=== PATIENT | male | born 1960 | race Caucasian/White ===

== ENCOUNTER 2019-09-01 23:39 | Observation (INO) ==
--- OUTSIDE RECORDS SUMMARY | 2019-09-01 23:41 | External Medical Summary | Continuity of Care Document ---
:1960 Author Name Lynda Burris, Provider Address Unavailable Unavailable , Care Team Providers Name Role Phone Татьяна Sahu Unavailable [email or web address] Anabel Gupta Unavailable [email or web address] Unavailable Unavailable Unavailable Unavailable Problems Blurry vision (368.8) (H53.8) Diabetes mellitus (250.00) (E11.9) Hypertension (401.9) (I10) Right inguinal hernia (550.90) (K40.90) Hypothyroidism (244.9) (E03.9) Atrial fibrillation (427.31) (I48.91) Microalbuminuria (791.0) (R80.9) Dyslipidemia (272.4) (E78.5) Diabetes mellitus type 2, uncontrolled (250.02) (E11.65) Allergies and Adverse Reactions No Known Drug Allergies (Allergy) Medications HYDROcodone-Acetaminophen 10-325 MG Oral Tablet; TAKE 1 TABLET DAILY FOR 10 DAYS. Refills: 0 Tricor 145 MG Oral Tablet; TAKE 1 TABLET DAILY AT BEDTIME Refills: 0 Synthroid 137 MCG Oral Tablet; TAKE 1 TABLET DAILY DIRECT ED. Refills: 0 metFORMIN HCl - 500 MG Oral Tablet; TAKE 1 TABLET TWICE [place] Y. Refills: 0 Flonase 50 MCG/ACT SUSP; USE 2 SPRAYS IN EACH NOSTRIL ONCE D AILY Refills: 0 OneTouch Ultra Blue In Vitro Strip; Test 3 times daily JON Lua Start: 04-Mar-2013 Quantity: 100 100 EA Bottle Refills: 5 OneTouch Delica Lancets MISC; Test 3 times daily ARCELIA Masters Start: 04-Mar-2013 Quantity: 100 Refills: 11 Procedures Procedures not documented Immunizations Influenza On: 12-Feb-2013 Social History - Smoking Status Never smoked tobacco Plan of Treatment Planned Observations Planned Goals not documented Results No Known Results Results not documented Encounters Appointment; Татьяна Presley CRNP 10-Jan-2018 9:15 Encounter Diagnosis: Problem not documented
--- OUTSIDE RECORDS SUMMARY | 2019-09-01 23:41 | External Medical Summary | Continuity of Care Document ---
:1960 Author Name Lynda Burris, Provider Address Unavailable Unavailable , Care Team Providers Name Role Phone Татьяна Sahu Unavailable [email or web address] Anabel Gupta Unavailable [email or web address] Unavailable Unavailable Unavailable Unavailable Unavailable Problems Hypertension (401.9) (I10) Atrial fibrillation (427.31) (I48.91) Blurry vision (368.8) (H53.8) Dyslipidemia (272.4) (E78.5) Diabetes mellitus (250.00) (E11.9) Diabetes mellitus type 2, uncontrolled (250.02) (E11.65) Hypothyroidism (244.9) (E03.9) Right inguinal hernia (550.90) (K40.90) Microalbuminuria (791.0) (R80.9) Allergies and Adverse Reactions No Known Drug Allergies (Allergy) Medications Tricor 145 MG Oral Tablet; TAKE 1 TABLET DAILY AT BEDTIME Refills: 0 OneTouch Ultra Blue In Vitro Strip; Test 3 times daily JON Lua Start: 04-Mar-2013 Quantity: 100 100 EA Bottle Refills: 5 OneTouch Delica Lancets MISC; Test 3 times daily ARCELIA Masters Start: 04-Mar-2013 Quantity: 100 Refills: 11 HYDROcodone-Acetaminophen 10-325 MG Oral Tablet; TAKE 1 TABLET DAILY FOR 10 DAYS. Refills: 0 Synthroid 137 MCG Oral Tablet; TAKE 1 TABLET DAILY DIRECT ED. Refills: 0 metFORMIN HCl - 500 MG Oral Tablet; TAKE 1 TABLET TWICE [place] Y. Refills: 0 Flonase 50 MCG/ACT SUSP; USE 2 SPRAYS IN EACH NOSTRIL ONCE D AILY Refills: 0 Procedures Procedures not documented Immunizations Influenza On: 12-Feb-2013 Social History - Smoking Status Never smoked tobacco Plan of Treatment Planned Observations Planned Goals not documented Results No Known Results Results not documented Encounters Appointment; Татьяна Presley CRNP 10-Jan-2018 9:15 Encounter Diagnosis: Problem not documented
[2019-09-02] MEDS ORDERED: SODIUM CHLORIDE 0.9% 1000ML 1,000 ML IV ONE ×2 (00:02→01:24)
--- NOTE | 2019-09-02 00:13 | Emergency Department Note ---
History of Present Illness General Chief complaint: Syncope Stated complaint: DIZZY,PASSING OUT History of Present Illness Maximum Pain Intensity: 5 This 59-year-old presents to the ER complaining of abdominal pain, loss of taste, feeling dehydrated, lightheaded, intermittent headache, cough, chills, body aches and syncope for the past 4 days Location: Generalized Quality: Achy Severity: Moderate Duration: 4 days Timing: Symptoms started Saturday Context: Patient was concerned given Modifying factors: better with rest; worse with activity Patient states tonight when he got up he got lightheaded and briefly passed out. This occurred 5 times. Patient also complains of polydipsia, polyuria and blurry vision. He is a diabetic. He does not check his blood sugars. Patient has not traveled. He has not left his home. [place] sick contacts[place] Patient complains of feeling chilled and achy. Patient denies chest pain, dyspnea, productive cough, sore throat, vomiting, diarrhea, leg pain or swelling. He does not smoke or drink. No prior abdominal surgeries. Home Medications Home Medications Medication Instructions Recorded Confirmed Type hydrocodone-acetaminophen 1 tab PO DAILY PRN 09/02/19 09/02/19 History ibuprofen 800 mg PO Q8 PRN 09/02/19 09/02/19 History levothyroxine 137 mcg PO DAILY 09/02/19 09/02/19 History metformin 1,000 mg PO BID 09/02/19 09/02/19 History Allergies Allergy/AdvReac Type Severity Reaction Status Date / Time No Known Allergies Allergy Unknown Verified 09/02/19 01:01 Past Med/Surg History Medical History Diabetes Surgical History (Updated 09/02/19 @ 00:12 by Yadira Cristobal PA-C) H/O thyroidectomy Social History Preferred Language: Greenlandic Feels Safe at Home: Yes Smoking Status: Never smoker Review of Systems A total of 10 systems reviewed and were otherwise negative Physical Exam Vital Signs Vital Signs - 24 hr 09/01/19 23:44 09/02/19 00:30 09/02/19 00:34 Temperature 37.0 C Temperature Source Oral Pulse Rate 96 H 92 H 89 Pulse Rate [Apical] Pulse Rate from SpO2 Sensor 92 H Pulse Rhythm [Apical] Respiratory Rate 20 25 H Respiratory Effort / Characteristics Non-Labored Respiratory Depth Normal Blood Pressure 155/90 H 142/84 H Blood Pressure [Left Arm] Blood Pressure Mean 111 92 Blood Pressure Mean [Left Arm] Pulse Oximetry 93 91 91 Oxygen Delivery Method Room Air Room Air Room Air Sepsis Recent Fever Within 48 Hours No Sepsis New/Unexplained Change in Mental Status No Sepsis Action Taken by Nursing No Action Required 09/02/19 01:00 09/02/19 01:30 09/02/19 02:05 Temperature Temperature Source Pulse Rate 90 87 84 Pulse Rate [Apical] Pulse Rate from SpO2 Sensor 91 H 87 84 Pulse Rhythm [Apical] Respiratory Rate 23 24 20 Respiratory Effort / Characteristics Respiratory Depth Blood Pressure 148/82 H 150/96 H 163/92 H Blood Pressure [Left Arm] Blood Pressure Mean 118 107 107 Blood Pressure Mean [Left Arm] Pulse Oximetry 95 95 96 Oxygen Delivery Method Room Air Room Air Room Air Sepsis Recent Fever Within 48 Hours Sepsis New/Unexplained Change in Mental Status Sepsis Action Taken by Nursing 09/02/19 02:44 Temperature Temperature Source Pulse Rate Pulse Rate [Apical] 81 Pulse Rate from SpO2 Sensor Pulse Rhythm [Apical] Regular Respiratory Rate 16 Respiratory Effort / Characteristics Non-Labored Spontaneous Respiratory Depth Normal Blood Pressure Blood Pressure [Left Arm] 150/94 H Blood Pressure Mean Blood Pressure Mean [Left Arm] 112 Pulse Oximetry 96 Oxygen Delivery Method Room Air Sepsis Recent Fever Within 48 Hours Sepsis New/Unexplained Change in Mental Status Sepsis Action Taken by Nursing VITALS: Vitals are noted on the nurse's note and reviewed by myself. Vital signs stable. GENERAL: Pleasant male mildly dehydrated appearing, in no acute distress, nondiaphoretic, well-developed well-nourished. SKIN: The skin was without rashes, erythema, edema, or bruising. There is no tenting of the skin. Capillary reflex less than 2 seconds. HEAD: Normocephalic atraumatic. EARS: External auditory canals clear, tympanic membranes pearly phan without erythema or effusion bilaterally. EYES: Pupils equal round and reactive to light and accommodation. Conjunctivae without injection, sclerae without icterus. Extraocular movements intact. NOSE: Patent, turbinates without inflammation or discharge. No sinus tenderness. MOUTH: Mucous membranes mildly dry. Pharynx without erythema or exudate. Uvula midline. Airway patent. Tongue does not deviate. NECK: Supple without nuchal rigidity. No lymphadenopathy. No thyromegaly. Cervical spine is nontender. No JVD. HEART: Regular rate and rhythm LUNGS: Clear to auscultation bilaterally without wheezes, rales or rhonchi. No retractions or accessory muscle use. ABDOMEN: Positive bowel sounds x 4. Normal tympanic percussion. Soft, tender to palpation right lower quadrant, without masses or organomegaly. Alvarez sign negative. No guarding or rebound tenderness. No CVA tenderness MUSCULOSKELETAL: No muscle atrophy, erythema, or edema noted. NEURO: Patient was alert and oriented to person place and time. Normal sensation to light and sharp touch. No focal neurological deficits. Course Administered Medications Ceftriaxone Sodium (Rocephin) 2,000 mg in 70 mls @ 140 mls/hr IV NOW STA Stop: 09/02/19 02:58 Last Admin: 09/02/19 02:45 Dose: 140 mls/hr Documented by: [id number] Sodium Chloride (Nss 1000ml) 1,000 mls @ 125 mls/hr IV .Q8H NATALIE Stop: 10/02/19 02:44 Last Admin: 09/02/19 02:46 Dose: 125 mls/hr Documented by: [id number] Ioversol (Optiray 320 125ml) 125 ml IV ONCE PRN PRN Reason: Interaction Checking Stop: 09/06/19 02:21 Last Admin: 09/02/19 02:22 Dose: 117 ml Documented by: [id number] Discontinued Medications Azithromycin (Zithromax) 500 mg PO NOW ONE Stop: 09/02/19 02:30 Last Admin: 09/02/19 02:46 Dose: 500 mg Documented by: [id number] Sodium Chloride (Nss 1000ml) 1,000 mls @ 999 mls/hr IV .Q1H1M ONE Stop: 09/02/19 01:02 Last Infusion: 09/02/19 01:27 Dose: 0 mls/hr Documented by: [id number] Admin: 09/02/19 00:26 Dose: 999 mls/hr Documented by: [id number] Sodium Chloride (Nss 1000ml) 1,000 mls @ 999 mls/hr IV .Q1H1M ONE Stop: 09/02/19 02:24 Last Infusion: 09/02/19 02:46 Dose: 0 mls/hr Documented by: [id number] Admin: 09/02/19 02:02 Dose: 999 mls/hr Documented by: [id number] Medical Decision Making Medical Records Attestation: I reviewed the patient's medical records. Home Medications Current Medication List: was personally reviewed by me Laboratory Data Attestation: I reviewed the patient's lab results. Result diagrams: 09/02/19 00:20 09/02/19 00:20 Lab Results 09/02/19 09/02/19 09/02/19 Range/Units 00:06 00:20 00:20 WBC 8.80 (4.8-10.8) K/uL RBC 4.08 L (4.7-6.1) M/uL Hgb 13.0 L (14.0-18.0) g/dL Hct 36.6 L (42-52) % MCV 89.7 (80-100) fL MCH 31.9 (25-34) pg MCHC 35.5 (32-36) g/dL RDW Std Deviation 40.6 (36.4-46.3) fL RDW Coeff of Ita 12.4 (11.5-14.5) % Plt Count 226 (130-400) K/uL MPV 10.0 (7.4-10.4) fL Immature Gran % (Auto) 0.2 % Neut % (Auto) 75.0 % Lymph % (Auto) 15.5 % Gentry % (Auto) 8.0 % Eos % (Auto) 0.8 % Baso % (Auto) 0.5 % Immature Gran # (Auto) 0.02 (0.00-0.02) K/uL Neut # (Auto) 6.61 H (1.4-6.5) K/uL Lymph # (Auto) 1.36 (1.2-3.4) K/uL Gentry # (Auto) 0.70 H (0.11-0.59) K/uL Eos # (Auto) 0.07 (0-0.5) K/uL Baso # (Auto) 0.04 (0-0.2) K/uL PT 10.9 (9.0-12.0) Seconds INR 1.0 (0.9-1.1) APTT 27.2 (21.0-31.0) Seconds PTT Ratio 1.0 Sodium (136-145) mmol/L Potassium (3.5-5.1) mmol/L Chloride (98-107) mmol/L Carbon Dioxide (21-32) mmol/L Anion Gap (3-11) BUN (7-18) mg/dl Creatinine (0.6-1.4) mg/dl Est Cr Clr Drug Dosing ml/min Est GFR ( Amer) Est GFR (Non-Af Amer) BUN/Creatinine Ratio (10-20) Glucose (70-99) mg/dl POC Glucose 388 H* (70-99) mg/dl POC Lactic Acid Mick (0.90-1.70) mmol/L Lactate (0.4-2.0) mmol/L Calcium (8.5-10.1) mg/dl Magnesium (1.8-2.4) mg/dl Total Bilirubin (0.2-1) mg/dl AST (15-37) U/L ALT (12-78) U/L Alkaline Phosphatase (45-117) U/L Troponin I (0-0.045) ng/ml Total Protein (6.4-8.2) gm/dl Albumin (3.4-5.0) gm/dl Globulin (2.5-4.0) gm/dl Albumin/Globulin Ratio (0.9-2) Beta-Hydroxybutyric Acd (0.2-2.81) mg/dl TSH (0.300-4.500) uIu/ml Free T4 (0.8-1.6) ng/dl Urine Color Urine Appearance (Clear) Urine pH (4.5-7.5) Ur Specific [place] (1.000-1.030) Urine Protein (Negative) Urine Glucose (UA) (Negative) Urine Ketones (Negative) Urine Blood (Negative) Urine Nitrite (Negative) Urine Bilirubin (Negative) Urine Urobilinogen (Negative) Ur Leukocyte Esterase (Negative) Urine WBC (Auto) (0-5) /hpf Urine RBC (Auto) (0-4) /hpf U Hyaline Cast (Auto) (0-5) /lpf U Epithel Cells (Auto) (0-5) /lpf Urine Bacteria (Auto) (Negative) 09/02/19 09/02/19 09/02/19 Range/Units 00:20 00:20 00:28 WBC (4.8-10.8) K/uL RBC (4.7-6.1) M/uL Hgb (14.0-18.0) g/dL Hct (42-52) % MCV (80-100) fL MCH (25-34) pg MCHC (32-36) g/dL RDW Std Deviation (36.4-46.3) fL RDW Coeff of Ita (11.5-14.5) % Plt Count (130-400) K/uL MPV (7.4-10.4) fL Immature Gran % (Auto) % Neut % (Auto) % Lymph % (Auto) % [place] % (Auto) % Eos % (Auto) % Baso % (Auto) % Immature Gran # (Auto) (0.00-0.02) K/uL Neut # (Auto) (1.4-6.5) K/uL Lymph # (Auto) (1.2-3.4) K/uL Gentry # (Auto) (0.11-0.59) K/uL Eos # (Auto) (0-0.5) K/uL Baso # (Auto) (0-0.2) K/uL PT (9.0-12.0) Seconds INR (0.9-1.1) APTT (21.0-31.0) Seconds PTT Ratio Sodium 133 L (136-145) mmol/L Potassium 4.1 (3.5-5.1) mmol/L Chloride 99 (98-107) mmol/L Carbon Dioxide 25 (21-32) mmol/L Anion Gap 9.0 (3-11) BUN 21 H (7-18) mg/dl Creatinine 1.74 H (0.6-1.4) mg/dl Est Cr Clr Drug Dosing 54.2 ml/min Est GFR ( Amer) 49.0 Est GFR (Non-Af Amer) 42.3 BUN/Creatinine Ratio 11.8 (10-20) Glucose 417 H* (70-99) mg/dl POC Glucose (70-99) mg/dl POC Lactic Acid Mick 1.89 H (0.90-1.70) mmol/L Lactate 2.0 (0.4-2.0) mmol/L Calcium 9.0 (8.5-10.1) mg/dl Magnesium 2.1 (1.8-2.4) mg/dl Total Bilirubin 0.5 (0.2-1) mg/dl AST 25 (15-37) U/L ALT 42 (12-78) U/L Alkaline Phosphatase 111 (45-117) U/L Troponin I < 0.015 (0-0.045) ng/ml Total Protein 8.3 H (6.4-8.2) gm/dl Albumin 3.5 (3.4-5.0) gm/dl Globulin 4.8 H (2.5-4.0) gm/dl Albumin/Globulin Ratio 0.7 L (0.9-2) Beta-Hydroxybutyric Acd (0.2-2.81) mg/dl TSH 11.200 H (0.300-4.500) uIu/ml Free T4 1.19 (0.8-1.6) ng/dl Urine Color Urine Appearance (Clear) Urine pH (4.5-7.5) Ur Specific [place] (1.000-1.030) Urine Protein (Negative) Urine Glucose (UA) (Negative) Urine Ketones (Negative) Urine Blood (Negative) Urine Nitrite (Negative) Urine Bilirubin (Negative) Urine Urobilinogen (Negative) Ur Leukocyte Esterase (Negative) Urine WBC (Auto) (0-5) /hpf Urine RBC (Auto) (0-4) /hpf U Hyaline Cast (Auto) (0-5) /lpf U Epithel Cells (Auto) (0-5) /lpf Urine Bacteria (Auto) (Negative) 09/02/19 09/02/19 Range/Units 01:37 02:38 WBC (4.8-10.8) K/uL RBC (4.7-6.1) M/uL Hgb (14.0-18.0) g/dL Hct (42-52) % MCV (80-100) fL MCH (25-34) pg MCHC (32-36) g/dL RDW Std Deviation (36.4-46.3) fL RDW Coeff of Ita (11.5-14.5) % Plt Count (130-400) K/uL MPV (7.4-10.4) fL Immature Gran % (Auto) % Neut % (Auto) % Lymph % (Auto) % Gentry % (Auto) % Eos % (Auto) % Baso % (Auto) % Immature Gran # (Auto) (0.00-0.02) K/uL Neut # (Auto) (1.4-6.5) K/uL Lymph # (Auto) (1.2-3.4) K/uL Gentry # (Auto) (0.11-0.59) K/uL Eos # (Auto) (0-0.5) K/uL Baso # (Auto) (0-0.2) K/uL PT (9.0-12.0) Seconds INR (0.9-1.1) APTT (21.0-31.0) Seconds PTT Ratio Sodium (136-145) mmol/L Potassium (3.5-5.1) mmol/L Chloride (98-107) mmol/L Carbon Dioxide (21-32) mmol/L Anion Gap (3-11) BUN (7-18) mg/dl Creatinine (0.6-1.4) mg/dl Est Cr Clr Drug Dosing ml/min Est GFR ( Amer) Est GFR (Non-Af Amer) BUN/Creatinine Ratio (10-20) Glucose (70-99) mg/dl POC Glucose 326 H* (70-99) mg/dl POC Lactic Acid Mick (0.90-1.70) mmol/L Lactate (0.4-2.0) mmol/L Calcium (8.5-10.1) mg/dl Magnesium (1.8-2.4) mg/dl Total Bilirubin (0.2-1) mg/dl AST (15-37) U/L ALT (12-78) U/L Alkaline Phosphatase (45-117) U/L Troponin I (0-0.045) ng/ml Total Protein (6.4-8.2) gm/dl Albumin (3.4-5.0) gm/dl Globulin (2.5-4.0) gm/dl Albumin/Globulin Ratio (0.9-2) Beta-Hydroxybutyric Acd (0.2-2.81) mg/dl TSH (0.300-4.500) uIu/ml Free T4 (0.8-1.6) ng/dl Urine Color Yellow Urine Appearance Clear (Clear) Urine pH 5.0 (4.5-7.5) Ur Specific [place] 1.035 H (1.000-1.030) Urine Protein 1+ H (Negative) Urine Glucose (UA) 3+ H (Negative) Urine Ketones Trace H (Negative) Urine Blood Trace H (Negative) Urine Nitrite Negative (Negative) Urine Bilirubin Negative (Negative) Urine Urobilinogen Negative (Negative) Ur Leukocyte Esterase Negative (Negative) Urine WBC (Auto) 1-5 (0-5) /hpf Urine RBC (Auto) 0-4 (0-4) /hpf U Hyaline Cast (Auto) 0 (0-5) /lpf U Epithel Cells (Auto) 0-5 (0-5) /lpf Urine Bacteria (Auto) Negative (Negative) Imaging Data Attestation: I personally reviewed and interpreted this imaging study as follows: Blood Pressure Blood Pressure Findings: Elevated blood pressure Blood Pressure Disposition: Referred to patients primary care provider MDM Narrative Prior records/ancillary studies reviewed and summarized above. Nursing notes reviewed. The patient's history was concerning for syncope, abdominal pain, cold symptoms. Differential diagnosis: Etiologies such as DKA, coronavirus, intra-abdominal, metabolic, infection, hypo/hyperglycemia, electrolyte abnormalities, cardiac sources, intracerebral event, toxicologic, neurologic, as well as others were entertained. Physical examination: As above. ER treatment provided: IV Lock An order was placed for continuous cardiac monitoring. The monitor shows a rate of 60-100 with a normal sinus rhythm. IV fluids x2 L, maintenance at 125 an hour, Rocephin, Zithromax, insulin On reassessment the patient felt better. Diagnostics interpretation by me: ECG: Ordered for syncope EKG: Normal sinus, normal intervals, no acute ST-T wave changes, rate of 93. Impression normal sinus rhythm interpreted by myself I think arrhythmia is unlikely. EKG shows normal sinus rhythm with no interval abnormalities such as QT prolongation or WPW. There are no findings to suggest Brugada syndrome. Cardiac monitoring in the emergency department reveals no tachycardic or bradycardic dysrhythmia. Hypertrophic cardiomyopathy was considered but there are no clear historical elements pointing toward this. EKG is not suggestive. The QRS voltage is not extremely large and there are no suggestive Q waves. The labs revealed no leukocytosis, creatinine 1.7. No recent creatinine in chart review or in the [employer] system Hyperglycemia without DKA Blood cultures pending. Negative lactic acid COVID test pending Imaging studies: Chest x-ray concerning for possible right lower lobe pneumonia per my interpretation CTA CHEST: Patchy reticulonodular consolidation in the anterior and lateral right lower lobe is concerning for pneumonia. These imaging features are atypical or uncommonly reported for (COVID-19) pneumonia. Alternative diagnoses should be considered. Evaluation for pulmonary emboli in the distal branches is somewhat limited due to suboptimal opacification. No definite PE. No aortic aneurysm or dissection. Radiologist: Any Pavon MD CT HEAD: No acute intracranial hemorrhage, mass effect, midline shift, hydrocephalus or acute infarct. Bony structures are intact. Left mastoid effusion. Radiologist: Any Pavon MD CT ABDOMEN & PELVIS With Contrast: Hepatic steatosis. Gallbladder and pancreas are unremarkable. No hydronephrosis or nephrolithiasis. No bowel wall thickening or obstruction. Normal appendix. No free air or free fluid. Radiologist: Ayn Pavon MD Consultation: A consultation was placed with Dr. Hoffman. The case was discussed and diagnostics were reviewed. The patient was evaluated in the ER for further tr eatment. Exam and history seem consistent with pneumonia, syncope, dehydration, hyperglycemia. Patient was started on antibiotics. Medicine was consulted. Patient is agreeable. COVID testing was sent. Isolation precautions were implemented. Patient was given IV fluids and insulin. Blood sugar was rechecked. Medicine was made aware. Patient is agreeable to treatment plan of admission. By the evaluation outlined above emergent etiologies such as cardiac sources, intracerebral event, toxologic, neurologic, as well as others were deemed relatively unlikely. The pt informed about the findings as listed above. All questions were answered and pleased with the treatment. The chart was completed utilizing [employer] Speech voice recognition software. Grammatical errors, random word insertions, pronoun errors, and incomplete sentences are an occassional consequence of this system due to software limitations, ambient noise, and hardware issues. Any formal questions or c oncerns about the content, text, or information contained within the body of this dictation should be directly addressed to the physician floor covering printer assistant for clarification. Impression & Plan Pneumonia, Syncope, Acute dehydration, Acute hyperglycemia Discharge Plan Visit Data Chief Complaint: Syncope Stated Complaint: DIZZY,PASSING OUT ED Provider: Eric Grey ED Midlevel Provider: Yadira Cristobal Discharge Problem: Pneumonia, Syncope, Acute dehydration, Acute hyperglycemia Patient Disposition: Being Evaluated by Hospitalist Condition: Good Forms Stand Alone Forms: My [facility] Prescriptions Prescriptions: No Action levothyroxine 137 mcg tablet 137 mcg PO DAILY RF: 0 metformin 1,000 mg tablet 1,000 mg PO BID RF: 0 ibuprofen 800 mg tablet 800 mg PO Q8 PRN (Reason: Pain) RF: 0 hydrocodone-acetaminophen 5-325 mg tablet 1 tab PO DAILY PRN (Reason: Pain) RF: 0 Referrals Referrals: PCP,NO [Primary Care Provider] - Discharge Problem: Pneumonia Qualifiers: Pneumonia type: due to unspecified organism Laterality: bilateral Lung location: lower lobe of lung Qualified Code(s): J18.9 - Pneumonia, unspecified organism
[2019-09-02 00:45] LABS: Basophils # (auto) 0.04 K/uL (0-0.2); Basophils % (auto) 0.5 %; Eosinophils # (auto) 0.07 K/uL (0-0.5); Eosinophils % (auto) 0.8 %; Hematocrit (blood only) 36.6 % (42-52); Immature Granulocytes # (auto) 0.02 K/uL (0.00-0.02); Immature Granulocytes % (auto) 0.2 %; Lymphocytes # (auto) 1.36 K/uL (1.2-3.4); Lymphocytes % (auto) 15.5 %; Mean Corpuscular Hemoglobin 31.9 pg (25-34); Mean Corpuscular Hgb Conc 35.5 g/dL (32-36); Mean Corpuscular Volume 89.7 fL (80-100); Neutrophils # (auto) 6.61 K/uL (1.4-6.5); Platelet Count 226 K/uL (130-400); RDW Coefficient of Variation 12.4 % (11.5-14.5); RDW Standard Deviation 40.6 fL (36.4-46.3); Red Blood Count 4.08 M/uL (4.7-6.1)
[2019-09-02 01:03] LABS: Partial Thromboplastin Time 27.2 Seconds (21.0-31.0); Prothrombin Time 10.9 Seconds (9.0-12.0)
[2019-09-02 01:18] LABS: Alanine Aminotransferase 42 U/L (12-78); Albumin Globulin Ratio 0.7 (0.9-2); Albumin Level 3.5 gm/dl (3.4-5.0); Alkaline Phosphatase 111 U/L (45-117); Aspartate Aminotransferase 25 U/L (15-37); BUN Creatinine Ratio 11.8 (10-20); Bilirubin,Total 0.5 mg/dl (0.2-1); Blood Urea Nitrogen 21 mg/dl (7-18); Carbon Dioxide 25 mmol/L (21-32); Chloride 99 mmol/L (98-107); Creatinine Clr Calc Pharmacy 54.2 ml/min; Est GFR (Non-African American) 42.3; Globulin 4.8 gm/dl (2.5-4.0); Glucose 417 mg/dl (70-99); Magnesium 2.1 mg/dl (1.8-2.4); Potassium 4.1 mmol/L (3.5-5.1); Sodium 133 mmol/L (136-145); Total Protein 8.3 gm/dl (6.4-8.2); Troponin I < 0.015 ng/ml (0-0.045)
[2019-09-02 01:32] LABS: T4 Free Thyroxine 1.19 ng/dl (0.8-1.6)
[2019-09-02 01:48] LABS: Appearance Urine Clear (Clear); Bacteria Urine Automated Negative (Negative); Bilirubin Urine Negative (Negative); Blood Urine Trace (Negative); Cast Urine Automated 0 /lpf (0-5); Color Urine Yellow; Epithelial Cell Urine Auto 0-5 /lpf (0-5); Glucose Urine UA 3+ (Negative); Ketones Urine Trace (Negative); Leukocyte Esterase Urine Negative (Negative); Nitrite Urine Negative (Negative); Protein Urine 1+ (Negative); RBC Urine Automated 0-4 /hpf (0-4); Specific Gravity Urine 1.035 (1.000-1.030); Urobilinogen Urine Negative (Negative)
[2019-09-02] MEDS ORDERED: OPTIRAY 320 125ml IV PRN (02:22)
[2019-09-02] MEDS ORDERED: cefTRIAXone SODIUM 2,000 MG/70 ML BAG IV STA (02:29)
[2019-09-02] MEDS ORDERED: AZITHROMYCIN 250 MG TAB PO ONE (02:29)
[2019-09-02] MEDS ORDERED: NovoLIN-R INSULIN PER UNIT CHARGE IV STA (02:40)
[2019-09-02] MEDS ORDERED: SODIUM CHLORIDE 0.9% 1000ML 1,000 ML IV SCH ×2 (02:45→05:30)
--- NOTE | 2019-09-02 03:39 | History & Physical Report ---
Date of Service September 02, 2019 Assessment & Plan (1) Syncope: Patient reports multiple syncopal episodes occurring with positional changes most likely secondary to orthostatic syncope in setting of acute dehydration. He denies CP, palpitations, incontinence or seizure activity. -IVF - patient received 2L NSS in ER, will continue NSS 125mL/hr x 1 liter -Check orthostatic VS Present on Admission?: Yes (2) Diabetes: Patient presents today with BS of 417 in setting of polyuria/polydipsia/nausea and blurry vision. He reports not having a formal diagnosis of DM. He is taking Metformin at home. BS 417 --> 326 after IVF. Administered 10u regular insulin, repeat BSG pending. No anion gap. He does have ketones on UA, possibly secondary to starvation/dehydration. -Check HgbA1C -Lantus 7u BID -ISS with CF 45, CR 20. Adjust as needed for goal blood sugar 100 - 140 -Check fasting lipid panel with next blood draw -Patient with elevated BUN and Cr, 21 and 1.74 respectively. No prior values, acute vs chronic? He does have 1+ protein on UA -Consider initiation of low dose Babatunde-inhibitor for renal protection - will defer this for now pending results of SARS-CoV2 testing -Pharmacy consultation -Nutrition consultation -Patient will need Ophtho and Podiatry referral on discharge Present on Admission?: Yes (3) Pneumonia: Patient with patchy infiltrates noted on CTA chest. He is presently afebrile, HD stable. He was tachypneic on arrival with RR=25, saturating 91% on room air. He denies cough/SOB/CP/sick contacts/travel or contact with Covid-19+ persons. Low risk for exposure to Covid-19. He does endorse loss of taste -SARS-CoV2 ordered -Maintain isolation precautions - Contact and Airborne- until testing resulted -Follow culture results -Ceftriaxone and Azithromycin for presumed CAP -Tylenol as needed for pain or fever Present on Admission?: Yes (4) Hypothyroid: Elevated, TSH, normal T4 -Continue Synthroid F/E/N- NSS at 125mL/hr, monitor electrolytes and renal function, CC diet Ppx - Lovenox for DVT ppx Code - Full per discussion with patient Dispo - Admit to PCU for blood sugar management, Covid-19 rule out Present on Admission?: Yes Admission and Anticipated Discharge Date Admission Date: 09/02/19 Anticipated date of discharge: 09/03/19 History of Present Illness Chief Complaint: polyuria, polydipsia, syncope Primary Care Provider: NO PCP Mr. Thornton is a pleasant 59yo C male presenting with hyperglycemia. He reports 1-2 weeks of increased thirst, polydipsia/polyuria. Also with poor appetite, nausea after eating, blurry vision, loss of taste. Yesterday he developed chills and body aches. He tried to get up from the couch and became dizzy and passed out. This happened multiple times. No head trauma. He denies cough/SOB/CP/LOVE/sore throat/runny nose He denies abdominal pain/vomiting/diarrhea/constipation/dysuria Patient denies a prior history of diabetes. However, diabetes is listed in his problem list and he is taking Metformin at home. He does not check his blood sugars routinely at home. Patient lives in [place], [place]. He denies recent travel, sick contacts or contact with any Covid-19 positive individuals. He has been practicing social distancing in his home. ER Course: Insulin 10u, NSS x 2 L then at 125mL/hr Allergies Allergy/AdvReac Type Severity Reaction Status Date / Time No Known Allergies Allergy Unknown Verified 09/02/19 01:01 Home Medications Home Medications Medication Instructions Recorded Confirmed Type hydrocodone-acetaminophen 1 tab PO DAILY PRN 09/02/19 09/02/19 History ibuprofen 800 mg PO Q8 PRN 09/02/19 09/02/19 History levothyroxine 137 mcg PO DAILY 09/02/19 09/02/19 History metformin 1,000 mg PO BID 09/02/19 09/02/19 History Past Med/Surg History Medical History Diabetes Surgical History (Updated 09/02/19 @ 00:12 by Yadira Cristobal PA-C) H/O thyroidectomy Family History (Updated 09/02/19 @ 03:17 by Feli Hoffman DO) Other No significant family history Social History (Updated 09/02/19 @ 03:18 by Feli Hoffman DO) Preferred Language: Romansh Feels Safe at Home: Yes Smoking Status: Never smoker Hx Alcohol Use: No Hx Substance Use: No Review of Systems Review of Systems: All systems reviewed & are unremarkable except as noted in HPI & below Physical Exam Physical Exam: General: patient resting comfortably, NAD, non-toxic in appearance, AA&O x 4 Skin: warm, dry, intact, no rashes or lesions HEENT: Patient masked, NC/AT, PERRL, EOMI, anicteric sclera, conjunctiva without injection, external ear normal to inspection and nontender, nares patent, moist mucus membranes, dentition intact, small mucoid lesion on tip of tongue, neck supple, trachea midline, no LAD, no thyromegaly, no JVD Heart: +S1/S2, regular, no m/r/g Lungs: equal air entry bilaterally, faint crackles in bilateral bases, no rhonchi/wheezes Abd: +BS, soft, NT/ND, no masses/organomegaly/ascites Ext: warm, 2+ pulses in UE/LE bilaterally, no clubbing/cyanosis or edema Neuro: nonfocal, patient AA&O x 4, speech intact, no facial droop, moving all extremities on command with equal strength 5/5 Results & Data Results & Data ([facility]) Vital Signs (Past 12 Hours) Vital Signs Temp Pulse Pulse Resp BP BP Pulse Ox 09/02/19 02:44 81 16 150/94 H 96 09/02/19 02:05 84 20 163/92 H 96 09/02/19 01:30 87 24 150/96 H 95 09/02/19 01:00 90 23 148/82 H 95 09/02/19 00:34 89 91 09/02/19 00:30 92 H 25 H 142/84 H 91 09/01/19 23:44 37.0 C 96 H 20 155/90 H 93 Laboratory Results Lab Results 09/02/19 09/02/19 09/02/19 Range/Units 00:06 00:20 00:20 WBC 8.80 (4.8-10.8) K/uL RBC 4.08 L (4.7-6.1) M/uL Hgb 13.0 L (14.0-18.0) g/dL Hct 36.6 L (42-52) % MCV 89.7 (80-100) fL MCH 31.9 (25-34) pg MCHC 35.5 (32-36) g/dL RDW Std Deviation 40.6 (36.4-46.3) fL RDW Coeff of Iat 12.4 (11.5-14.5) % Plt Count 226 (130-400) K/uL MPV 10.0 (7.4-10.4) fL Immature Gran % (Auto) 0.2 % Neut % (Auto) 75.0 % Lymph % (Auto) 15.5 % [place] % (Auto) 8.0 % Eos % (Auto) 0.8 % Baso % (Auto) 0.5 % Immature Gran # (Auto) 0.02 (0.00-0.02) K/uL Neut # (Auto) 6.61 H (1.4-6.5) K/uL Lymph # (Auto) 1.36 (1.2-3.4) K/uL [place] # (Auto) 0.70 H (0.11-0.59) K/uL Eos # (Auto) 0.07 (0-0.5) K/uL Baso # (Auto) 0.04 (0-0.2) K/uL PT 10.9 (9.0-12.0) Seconds INR 1.0 (0.9-1.1) APTT 27.2 (21.0-31.0) Seconds PTT Ratio 1.0 Sodium (136-145) mmol/L Potassium (3.5-5.1) mmol/L Chloride (98-107) mmol/L Carbon Dioxide (21-32) mmol/L Anion Gap (3-11) BUN (7-18) mg/dl Creatinine (0.6-1.4) mg/dl Est Cr Clr Drug Dosing ml/min Est GFR ( Amer) Est GFR (Non-Af Amer) BUN/Creatinine Ratio (10-20) Glucose (70-99) mg/dl POC Glucose 388 H* (70-99) mg/dl POC Lactic Acid Mick (0.90-1.70) mmol/L Lactate (0.4-2.0) mmol/L Calcium (8.5-10.1) mg/dl Magnesium (1.8-2.4) mg/dl Total Bilirubin (0.2-1) mg/dl AST (15-37) U/L ALT (12-78) U/L Alkaline Phosphatase (45-117) U/L Troponin I (0-0.045) ng/ml Total Protein (6.4-8.2) gm/dl Albumin (3.4-5.0) gm/dl Globulin (2.5-4.0) gm/dl Albumin/Globulin Ratio (0.9-2) Beta-Hydroxybutyric Acd (0.2-2.81) mg/dl TSH (0.300-4.500) uIu/ml Free T4 (0.8-1.6) ng/dl Urine Color Urine Appearance (Clear) Urine pH (4.5-7.5) Ur Specific [place] (1.000-1.030) Urine Protein (Negative) Urine Glucose (UA) (Negative) Urine Ketones (Negative) Urine Blood (Negative) Urine Nitrite (Negative) Urine Bilirubin (Negative) Urine Urobilinogen (Negative) Ur Leukocyte Esterase (Negative) Urine WBC (Auto) (0-5) /hpf Urine RBC (Auto) (0-4) /hpf U Hyaline Cast (Auto) (0-5) /lpf U Epithel Cells (Auto) (0-5) /lpf Urine Bacteria (Auto) (Negative) 09/02/19 09/02/19 09/02/19 Range/Units 00:20 00:20 00:28 WBC (4.8-10.8) K/uL RBC (4.7-6.1) M/uL Hgb (14.0-18.0) g/dL Hct (42-52) % MCV (80-100) fL MCH (25-34) pg MCHC (32-36) g/dL RDW Std Deviation (36.4-46.3) fL RDW Coeff of Ita (11.5-14.5) % Plt Count (130-400) K/uL MPV (7.4-10.4) fL Immature Gran % (Auto) % Neut % (Auto) % Lymph % (Auto) % [place] % (Auto) % Eos % (Auto) % Baso % (Auto) % Immature Gran # (Auto) (0.00-0.02) K/uL Neut # (Auto) (1.4-6.5) K/uL Lymph # (Auto) (1.2-3.4) K/uL [place] # (Auto) (0.11-0.59) K/uL Eos # (Auto) (0-0.5) K/uL Baso # (Auto) (0-0.2) K/uL PT (9.0-12.0) Seconds INR (0.9-1.1) APTT (21.0-31.0) Seconds PTT Ratio Sodium 133 L (136-145) mmol/L Potassium 4.1 (3.5-5.1) mmol/L Chloride 99 (98-107) mmol/L Carbon Dioxide 25 (21-32) mmol/L Anion Gap 9.0 (3-11) BUN 21 H (7-18) mg/dl Creatinine 1.74 H (0.6-1.4) mg/dl Est Cr Clr Drug Dosing 54.2 ml/min Est GFR ( Amer) 49.0 Est GFR (Non-Af Amer) 42.3 BUN/Creatinine Ratio 11.8 (10-20) Glucose 417 H* (70-99) mg/dl POC Glucose (70-99) mg/dl POC Lactic Acid Mick 1.89 H (0.90-1.70) mmol/L Lactate 2.0 (0.4-2.0) mmol/L Calcium 9.0 (8.5-10.1) mg/dl Magnesium 2.1 (1.8-2.4) mg/dl Total Bilirubin 0.5 (0.2-1) mg/dl AST 25 (15-37) U/L ALT 42 (12-78) U/L Alkaline Phosphatase 111 (45-117) U/L Troponin I < 0.015 (0-0.045) ng/ml Total Protein 8.3 H (6.4-8.2) gm/dl Albumin 3.5 (3.4-5.0) gm/dl Globulin 4.8 H (2.5-4.0) gm/dl Albumin/Globulin Ratio 0.7 L (0.9-2) Beta-Hydroxybutyric Acd (0.2-2.81) mg/dl TSH 11.200 H (0.300-4.500) uIu/ml Free T4 1.19 (0.8-1.6) ng/dl Urine Color Urine Appearance (Clear) Urine pH (4.5-7.5) Ur Specific [place] (1.000-1.030) Urine Protein (Negative) Urine Glucose (UA) (Negative) Urine Ketones (Negative) Urine Blood (Negative) Urine Nitrite (Negative) Urine Bilirubin (Negative) Urine Urobilinogen (Negative) Ur Leukocyte Esterase (Negative) Urine WBC (Auto) (0-5) /hpf Urine RBC (Auto) (0-4) /hpf U Hyaline Cast (Auto) (0-5) /lpf U Epithel Cells (Auto) (0-5) /lpf Urine Bacteria (Auto) (Negative) 09/02/19 09/02/19 Range/Units 01:37 02:38 WBC (4.8-10.8) K/uL RBC (4.7-6.1) M/uL Hgb (14.0-18.0) g/dL Hct (42-52) % MCV (80-100) fL MCH (25-34) pg MCHC (32-36) g/dL RDW Std Deviation (36.4-46.3) fL RDW Coeff of Ita (11.5-14.5) % Plt Count (130-400) K/uL MPV (7.4-10.4) fL Immature Gran % (Auto) % Neut % (Auto) % Lymph % (Auto) % [place] % (Auto) % Eos % (Auto) % Baso % (Auto) % Immature Gran # (Auto) (0.00-0.02) K/uL Neut # (Auto) (1.4-6.5) K/uL Lymph # (Auto) (1.2-3.4) K/uL [place] # (Auto) (0.11-0.59) K/uL Eos # (Auto) (0-0.5) K/uL Baso # (Auto) (0-0.2) K/uL PT (9.0-12.0) Seconds INR (0.9-1.1) APTT (21.0-31.0) Seconds PTT Ratio Sodium (136-145) mmol/L Potassium (3.5-5.1) mmol/L Chloride (98-107) mmol/L Carbon Dioxide (21-32) mmol/L Anion Gap (3-11) BUN (7-18) mg/dl Creatinine (0.6-1.4) mg/dl Est Cr Clr Drug Dosing ml/min Est GFR ( Amer) Est GFR (Non-Af Amer) BUN/Creatinine Ratio (10-20) Glucose (70-99) mg/dl POC Glucose 326 H* (70-99) mg/dl POC Lactic Acid Mick (0.90-1.70) mmol/L Lactate (0.4-2.0) mmol/L Calcium (8.5-10.1) mg/dl Magnesium (1.8-2.4) mg/dl Total Bilirubin (0.2-1) mg/dl AST (15-37) U/L ALT (12-78) U/L Alkaline Phosphatase (45-117) U/L Troponin I (0-0.045) ng/ml Total Protein (6.4-8.2) gm/dl Albumin (3.4-5.0) gm/dl Globulin (2.5-4.0) gm/dl Albumin/Globulin Ratio (0.9-2) Beta-Hydroxybutyric Acd (0.2-2.81) mg/dl TSH (0.300-4.500) uIu/ml Free T4 (0.8-1.6) ng/dl Urine Color Yellow Urine Appearance Clear (Clear) Urine pH 5.0 (4.5-7.5) Ur Specific [place] 1.035 H (1.000-1.030) Urine Protein 1+ H (Negative) Urine Glucose (UA) 3+ H (Negative) Urine Ketones Trace H (Negative) Urine Blood Trace H (Negative) Urine Nitrite Negative (Negative) Urine Bilirubin Negative (Negative) Urine Urobilinogen Negative (Negative) Ur Leukocyte Esterase Negative (Negative) Urine WBC (Auto) 1-5 (0-5) /hpf Urine RBC (Auto) 0-4 (0-4) /hpf U Hyaline Cast (Auto) 0 (0-5) /lpf U Epithel Cells (Auto) 0-5 (0-5) /lpf Urine Bacteria (Auto) Negative (Negative) Diagnostic Findings CT Abdomen/Pelvis with contrast: Per STAT-rad - Hepatic steatosis. Gallbladder and pancreas are unremarkable. No hydronephrosis or nephrolithiasis. No bowel wall thickening or obstruction. Normal appendix. No free air or free fluid. CTA Chest: Per STAT-rad - Patchy reticulonodular consolidation in the anterior and lateral right lower lobe is concerning for pneumonia. These imaging features are atypical or uncommonly reportid for COVID-19 pneumonia. Alternative diagnoses should be considered. Evaluation for pulmonary emboli in the distal branches is somewhat limited due to suboptimal opacification. No definite PE. No aortic aneurysm or dissection. CT Head: Per STAT-rad - No acute intracranial hemorrhage, mass effect, midline shift, hydrocephalus or acute infarct. Body structures are intact. Left mastoid effusion. ECG Additional Comments: NSR at 93, normal axis, XP=065, QRS=94, SBt=474, no acute ischemic changes Code Status & VTE Plan Code Status FULL VTE Prophylaxis Plan VTE Prophylaxis will be ordered: Yes PG Care Time/CCT Total # of Minutes Spent Total Time Spent with Patient: Total time spent is greater than 50% in coordination of care (as documented) at patient's floor/unit and/or counseling patient: Coding Level of Care Code 15266 Initial Inpt Care Lvl 3 Diagnoses Syncope R55 Syncope type: unspecified Diabetes E11.65 Diabetes mellitus type: type 2 Diabetes mellitus electronic device monitor insulin use: without mcfp use Diabetes mellitus complication status: with hyperglycemia Pneumonia J18.9 Laterality: bilateral Lung location: lower lobe of lung Pneumonia type: due to unspecified organism Hypothyroid E89.0 Hypothyroidism type: postoperative (1) Syncope Syncope type: unspecified Qualified Code(s): R55 - Syncope and collapse (2) Diabetes Diabetes mellitus type: type 2 Diabetes mellitus mcfp insulin use: without electronic device monitor use Diabetes mellitus complication status: with hyperglycemia Qualified Code(s): E11.65 - Type 2 diabetes mellitus with hyperglycemia (3) Pneumonia Laterality: bilateral Lung location: lower lobe of lung Pneumonia type: due to unspecified organism Qualified Code(s): J18.9 - Pneumonia, unspecified organism (4) Hypothyroid Hypothyroidism type: postoperative Qualified Code(s): E89.0 - Postprocedural hypothyroidism
[2019-09-02] MEDS ORDERED: DEXTROSE 50% 50 ML SYRINGE IV PRN (05:18)
[2019-09-02] MEDS ORDERED: GLUCOSE 10 TABS/TUBE PO PRN (05:18)
[2019-09-02] MEDS ORDERED: ONDANSETRON INJ 2 MG/ML 2 ML VIAL IV PRN (05:18)
[2019-09-02] MEDS ORDERED: GLUCAGON FOR INJ 1 MG VIAL SQ PRN (05:18)
[2019-09-02] MEDS ORDERED: ACETAMINOPHEN 325 MG TAB PO PRN (05:18)
[2019-09-02] MEDS ORDERED: GLUCOSE 40% GEL 15 GM TUBE PO PRN (05:18)
[2019-09-02] MEDS ORDERED: CARBOHYDRATES FOR HYPOGLYCEMIA PO PRN (05:18)
[2019-09-02] MEDS ORDERED: PHARMACY GLYCEMIC MGMT CONSULT PRN (05:28)
[2019-09-02] MEDS ORDERED: INSULIN GLARGINE SOLOSTAR 100 UNITS/ML 3 ML PEN SC ONE ×2 (06:00→11:45)
[2019-09-02] MEDS: INSULIN ASPART 100 UNITS/ML 3 ML PEN SC SCH ×2 (06:01→12:01)
[2019-09-02] MEDS ORDERED: LEVOTHYROXINE SODIUM 137 MCG TABLET PO SCH (06:30)
--- NOTE | 2019-09-02 06:48 | XRay Report ---
XR chest 1V portable CLINICAL HISTORY: Sepsis. COMPARISON STUDY: Chest radiograph September 11, 2009. FINDINGS: Patient is mildly rotated. No pneumothorax or pleural effusion is noted. There is mild righ t lower lung airspace opacity. Cardiomediastinal silhouette is unremarkable. There is no evidence for pulmonary edema. IMPRESSION: Mild right lower lung opacity which favors an infectious process. Radiographic follow-up to ensure resolution is recommended. ACT 112: Negative or not required by law. Electronically signed by: Quinten Tripp M.D. 09/02/2019 6:47 AM
--- NOTE | 2019-09-02 06:51 | CT Scan Report ---
CT OF THE HEAD WITHOUT CONTRAST CLINICAL HISTORY: LOVE, syncope COMPARISON STUDY: Head CT September 08, 2006. CT DOSE: 776.86 mGycm TECHNIQUE: Helical axial images of the head were obtained without IV contrast. Automated exposure con trol was utilized for the study. A dose lowering technique was utilized adhering to the principles o f ALARA. FINDINGS: No acute intracranial hemorrhage, midline shift or mass effect is present. The ventricular system is unremarkable. The basilar cisterns are patent. No extra-axial collections are present. Ther e are no findings to suggest acute dural sinus thrombosis or acute territorial infarct. No significan t calvarial abnormalities are present. Visualized portions of the sinuses are clear. Left mastoid air cells are partially opacified. IMPRESSION: 1. No acute intracranial findings. 2. Partially opacified left mastoid air cells. ACT 112: Negative or not required by law. Electronically signed by: Quinten Tripp M.D. 09/02/2019 6:50 AM
--- NOTE | 2019-09-02 06:58 | CT Scan Report ---
CT OF THE ABDOMEN AND PELVIS WITH CONTRAST CLINICAL HISTORY: Right lower quadrant abdominal pain. COMPARISON STUDY: CT of the abdomen and pelvis February 22, 2012. TECHNIQUE: Following IV administration of 117 mL of Optiray-320, axial images of the abdomen and pelv is were obtained from the lung bases to the proximal femurs. Images were reviewed in the axial, sagit jacqui, and coronal planes. IV contrast was administered without complication. Automated exposure contr ol was utilized for the study. A dose lowering technique was utilized adhering to the principles of ALARA. FINDINGS: Please note that the chest CT will be reported separately. Right lower lobe airspace opacit y is better depicted on the chest CT. Fatty infiltration of the liver is noted with hepatomegaly. The re is no biliary or pancreatic ductal dilatation. The spleen, adrenal glands and pancreas are unremar kable. There is no peripancreatic infiltration. There is no hydronephrosis. Parapelvic cyst within th e right renal pelvis is noted. There is no evidence for a bowel obstruction. The appendix is normal. There is colonic diverticulosis without evidence for acute diverticulitis. There is excreted contrast within the collecting systems and ureters. There are no ureteral calculi. No suspicious osseous lesi ons are present. IMPRESSION: 1. No acute process within the abdomen or pelvis. Normal appendix. 2. No bowel obstruction. Colonic diverticulosis without evidence for acute diverticulitis. 3. Fatty infiltration of the liver. 4. Right lower lobe airspace opacity, better depicted on the chest CT. This favors pneumonia. ACT 112: Negative or not required by law. Electronically signed by: Quinten Tripp M.D. 09/02/2019 6:57 AM
--- NOTE | 2019-09-02 07:06 | CT Scan Report ---
CT angio chest PE protocol CLINICAL HISTORY: 59 years-old Male presenting with shortness of breath, sepsis. TECHNIQUE: Multidetector CT angiography of the chest was performed after administration of intravenou s contrast. 3-D volumetric and/or maximum intensity projection (MIP) images were subsequently reconst ructed for review. IV contrast: 117 mL of Optiray 320. One or more dose lowering techniques were used consistent with the principles of ALARA (as low as reasonably achievable), including automatic expos ure control, mA or kV adjustment to individual patient size, and/or use of iterative reconstruction. COMPARISON: 09/08/2006. CT DOSE (mGy.cm): The estimated cumulative dose is 1520.64 mGycm. FINDINGS: Forms Builder topogram: Unremarkable. Pulmonary vasculature: The study is suboptimal for the assessment of the pulmonary vascular tree secondary to timing of the contrast bolus. Allowing for limited image quality, no central filling defect to suggest pulmonary em bolus. Main pulmonary artery is not enlarged. No flattening of the interventricular septum. No intrac ardiac filling defect. No reflux of contrast into the hepatic veins. Remaining chest: Soft tissues: Thyroid not included within the [id number] or atrophic. Of a prominent subcarinal ly mph nodes measuring up to 10 mm in short axis. Prominent bilateral hilar lymph nodes, right greater t leonard left. Normal aorta. Normal heart size. No pericardial or pleural effusion. Hepatomegaly and hepat ic steatosis. Lungs and airways: No pneumothorax. Central airways patent. Pulmonary arteries are not significantly enlarged relative to adjacent bronchi. No interlobular septal thickening. Peribronchovascular and pat alex nodular peripheral predominant consolidation in the lateral basal, posterior basal, and anterior basal segments of the right lower lobe. Few scattered nonspecific solid nodules, which are largely pu nctate, the largest centrally within the lingula measuring 5 mm (series 4 image 121), unchanged from prior. Musculoskeletal: Normal osseous structures. IMPRESSION: 1. Allowing for suboptimal image quality, no evidence of pulmonary embolus. 2. Peribronchovascular and peripheral consolidation in the right lower lobe compatible with pneumoni a, likely typical pneumonia. The appearance is not characteristic of an atypical viral etiology. 3. Reactive mediastinal and hilar lymph nodes. 4. Hepatic steatosis and hepatomegaly. ACT 112: Negative or not required by law. Electronically signed by: Dustin Dodson M.D. 09/02/2019 7:04 AM
--- NOTE | 2019-09-02 07:52 | Hospitalist Progress Note ---
Date of Service September 02, 2019 Assessment & Plan (1) Syncope: Patient reports multiple syncopal episodes occurring with positional changes most likely secondary to orthostatic syncope in setting of acute dehydration. He denies CP, palpitations, incontinence or seizure activity. -IVF - patient received 2L NSS in ER, will continue NSS 125mL/hr x 1 liter -Check orthostatic VS (2) Diabetes: Patient presents today with BS of 417 in setting of polyuri a/polydipsia/nausea and blurry vision. He reports not having a formal diagnosis of DM. He is taking Metformin at home. BS 417 --> 326 after IVF. Administered 10u regular insulin, repeat BSG pending. No anion gap. He does have ketones on UA, possibly secondary to starvation/dehydration. -Check HgbA1C -Lantus 7u BID -ISS with CF 45, CR 20. Adjust as needed for goal blood sugar 100 - 140 -Check fasting lipid panel with next blood draw -Patient with elevated BUN and Cr, 21 and 1.74 respectively. No prior values, acute vs chronic? He does have 1+ protein on UA -Consider initiation of low dose Babatunde-inhibitor for renal protection - will defer this for now pending results of SARS-CoV2 testing -Pharmacy consultation -Nutrition consultation -Patient will need Ophtho and Podiatry referral on discharge (3) Pneumonia: Patient with patchy infiltrates noted on CTA chest. He is presently afebrile, HD stable. He was tachypneic on arrival with RR=25, saturating 91% on room air. He denies cough/SOB/CP/sick contacts/travel or contact with Covid-19+ persons. Low risk for exposure to Covid-19. He does endorse loss of taste -SARS-CoV2 ordered -Maintain isolation precautions - Contact and Airborne- until testing resulted -Follow culture results -Ceftriaxone and Azithromycin for presumed CAP -Tylenol as needed for pain or fever (4) Hypothyroid: Elevated, TSH, normal T4 -Continue Synthroid F/E/N- NSS at 125mL/hr, monitor electrolytes and renal function, CC diet Ppx - Lovenox for DVT ppx Code - Full per discussion with patient Dispo - Admit to PCU for blood sugar management, Covid-19 rule out Admission and Anticipated Discharge Date Admission Date: September 02, 2019 Results & Data Results & Data ([facility]) Vital Signs (Past 12 Hours) Vital Signs Temp Pulse Pulse Resp BP BP Pulse Ox 09/02/19 05:26 98.6 F 83 16 169/93 H 98 09/02/19 04:00 89 20 115/82 09/02/19 03:31 81 19 92 09/02/19 03:30 80 18 123/79 94 09/02/19 03:01 85 19 95 09/02/19 03:00 81 22 162/94 H 96 09/02/19 02:44 81 16 150/94 H 96 09/02/19 02:31 81 24 91 09/02/19 02:30 81 24 150/94 H 92 09/02/19 02:06 85 16 96 09/02/19 02:05 84 20 163/92 H 96 09/02/19 01:30 87 24 150/96 H 95 09/02/19 01:00 90 23 148/82 H 95 09/02/19 00:34 89 91 09/02/19 00:30 92 H 25 H 142/84 H 91 09/01/19 23:44 98.6 F 96 H 20 155/90 H 93 PG Care Time/CCT Total # of Minutes Spent Total Time Spent with Patient: Total time spent is greater than 50% in coordination of care (as documented) at patient's floor/unit and/or counseling patient: Coding Diagnoses Syncope R55 Syncope type: unspecified Diabetes E11.65 Diabetes mellitus type: type 2 Diabetes mellitus moth exterminator insulin use: without nursing home use Diabetes mellitus complication status: with hyperglycemia Pneumonia J18.9 Laterality: bilateral Lung location: lower lobe of lung Pneumonia type: due to unspecified organism Hypothyroid E89.0 Hypothyroidism type: postoperative (1) Syncope Syncope type: unspecified Qualified Code(s): R55 - Syncope and collapse (2) Diabetes Diabetes mellitus type: type 2 Diabetes mellitus moth exterminator insulin use: without nursing home use Diabetes mellitus complication status: with hyperglycemia Qualified Code(s): E11.65 - Type 2 diabetes mellitus with hyperglycemia (3) Pneumonia Laterality: bilateral Lung location: lower lobe of lung Pneumonia type: due to unspecified organism Qualified Code(s): J18.9 - Pneumonia, unspecified organism (4) Hypothyroid Hypothyroidism type: postoperative Qualified Code(s): E89.0 - Postprocedural hypothyroidism
[2019-09-02] MEDS ORDERED: ENOXAPARIN INJ 40 MG/0.4 ML SYR SQ SCH (08:00)
--- NOTE | 2019-09-02 09:28 | Electrocardiogram Report ---
Test Reason : Blood Pressure : / mmHG Vent. Rate : 093 BPM Atrial Rate : 093 BPM P-R Int : 148 ms QRS Dur : 094 ms QT Int : 330 ms P-R-T Axes : 053 018 024 degrees QTc Int : 410 ms Normal sinus rhythm Normal ECG When compared with ECG of 13-APR-2010 21:25, No significant change was found Confirmed by Prabhu Rosas ([id number]) on 09/02/2019 9:28:26 AM Referred By: REFERRED SELF Confirmed By:Prabhu Rosas
--- NOTE | 2019-09-02 14:35 | Pharmacy Report ---
Glycemic Control Consultation - Date of Service September 02, 2019 - Scope Scope: Glycemic Pharmacist consulted for glycemic control and to write orders per [facility] inpatient glycemic control protocol. - Objective Weight: 101 kg Accuchecks BSG (last 24hrs): Laboratory Data (last 24hrs): 09/02/19 00:20 Potassium 4.1 Carbon Dioxide 25 Anion Gap 9.0 Creatinine 1.74 H Est Cr Clr Drug Dosing 54.2 Beta-Hydroxybutyric Acd - Recent Pertinent Medications Outpatient Anti-diabetic Regimen: * Metformin 1000 mg PO QAM + 500 mg PO QPM * Glyburide 5 mg PO daily * A1c = pending The patient is currently receiving: * Basal insulin: Lantus 15 units x 1 * Correctional Insulin: Novolog Correction per scale ACHS Goal Range: Low 100 mg/dL - High 140 mg/dL Correction Factor: 25 mg/dL/unit * Prandial insulin: Per carb ratio of 1 unit per 8 grams CHO consumed Risk Factors for Insulin Resistance: * Infection: Rocephin + Azithromycin * Diet: T2DM - Assessment & Plan Assessment & Plan: ASSESSMENT: * 59 yo M admitted secondary to polyuria, polydipsia and syncope * Also reporting poor appetite, blurry vision, nausea. He developed chills and body aches and tried to get up from the couch and passed out. * Patient does not SMBG at home * Admission BSG was 417 mg/dL, received 10 unit IV insulin bolus + 15 units of Lantus * Lunch BSG was 317 mg/dL with a recheck of 278 mg/dL. In order to lower BSG more quickly, tightened CF/CR to provide more bolus insulin. Also ordered another 15 units of Lantus to be given for a total dose of 30 units this AM. * Will add a Lantus scale BID for now and add overnight BSG checks. PLAN FOR INPATIENT GLYCEMIC CONTROL: * Pt is maintained on oral antidiabetic agents as an outpatient * Oral agents are not recommended for inpatient use d/t drug interactions, changing PO intake, and difficulty titrating for acute hyper/hypoglycemia. * ADA & AACE recommend a goal blood sugar range 140-180 mg/dl for the majority of critically ill & non-critically ill patients. However, more stringent tar gets may be selected in individual cases. Will utilize more stringent goal of 110-140mg/dl based on patient age & comorbidities. ADA recommends re- initiating outpatient oral agents 1-2 days prior to discharge if/when appropriate if they were held on admission. * Will hold oral agents for admission and utilize SQ basal bolus insulin regimen which is the recommended regimen for inpatient glycemic control. * Will initiate weight based insulin dosing for insulin [place] patient and titrate based on BSG trends. * Basal insulin * Lantus 20-30 units SQ BID - see eMAR for further details * Bolus insulin * NovoLog per scale ACHS or Q6hrs while NPO * Goal Range: Low 110 mg/dL - High 140 mg/dL * Correction Factor: 20 mg/dL/unit * Nutritional / Prandial insulin per carb ratio of 1 unit per 7 grams CHO consumed * Please note that the plan above was derived based on current level of insulin resistance and hospital stress. These recommendations are appropriate for inva tient admission only. Plan of care upon discharge will need to be reassessed to avoid potential outpatient hypo/hyperglycemia. Thank you.
--- NOTE | 2019-09-02 17:37 | Discharge Summary ---
Date of Service September 02, 2019 Admission HPI Per Admitting Provider Mr. Thornton is a pleasant 59yo C male presenting with hyperglycemia. He reports 1-2 weeks of increased thirst, polydipsia/polyuria. Also with poor appetite, nausea after eating, blurry vision, loss of taste. Yesterday he developed chills and body aches. He tried to get up from the couch and became dizzy and passed out. This happened multiple times. No head trauma. He denies cough/SOB/CP/LOVE/sore throat/runny nose He denies abdominal pain/vomiting/diarrhea/constipation/dysuria Patient denies a prior history of diabetes. However, diabetes is listed in his problem list and he is taking Metformin at home. He does not check his blood sugars routinely at home. Patient lives in [place], [place]. He denies recent travel, sick contacts or contact with any Covid-19 positive individuals. He has been practicing social distancing in his home. ER Course: Insulin 10u, NSS x 2 L then at 125mL/hr Principal Diagnosis Uncontrolled diabetes Dehydration secondary to uncontrolled diabetes Orthostatic hypotension secondary to dehydration Possible atypical pneumonia COVID-19 testing negative Discharge Exam The patient appeared well Vital signs as documented. Lungs are clear to auscultation and appear unlabored Cardiac exam, Rhythm is regular.. No murmurs, rubs or gallops. Abdominal exam reveals normal bowel sounds, soft non tender, no masses Extremities are nonedematous and both pedal pulses are normal. Neurologic exam is alert and oriented, no focal loss of strength or sensation Skin is without bruises or rashes Psychologically is without concerns for anxiety or depression Discharge Data Allergies Allergy/AdvReac Type Severity Reaction Status Date / Time No Known Allergies Allergy Unknown Verified 09/02/19 01:01 Consultations 09/02/19 02:40 ED Decision to Admit Stat 09/02/19 05:18 Consult Case Management - Discharge Planning Routine Ordered Studies 09/02/19 00:02 CT abd pelvis IV con only Urgent 09/02/19 00:13 CT head/brain wo con Urgent 09/02/19 00:49 CT angio chest PE protocol Urgent Hospital Course (1) Diabetes: Patient presented on metformin with a markedly elevated blood glucose his hemoglobin A1c was ordered but currently not run. He does not seek healthcare within the [facility] system we have no old records. According to the patient's the patient has been markedly not not compliant with his diet typically drinking multiple bottles of soda throughout the day and eating large portions of meals. Patient has been in denial about being diabetic. I spent approximately 35 minutes counseling him in the room regarding his diabetes an additional 10 minutes discussing his with his on the phone. I do believe that at this point time it is a 59-year-old man who is never been on oral medications other than metformin should attempt to modify his lifestyle and diet significantly and attempt to use a sulfonylurea before transitioning to insulin therapy. Additionally are diabetic educators or not it available to see patients due to COVID restrictions and starting him on insulin and seeing him home would likely pose more risk than trying to initiate lifestyle changes and an oral sulfonylurea in addition to his metformin. Subsequently he will be discharged home on max dose metformin and initiating doses of his sulfonylurea with recommended outpatient monitoring via glucometer for which she was instructed by his floor nurse and close follow-up with Dr. Chan his primary care provider. (2) Syncope: Patient's positional lightheadedness has resolved and likely was related to hypoglycemic dehydration (3) Pneumonia: Patient with patchy infiltrates noted on CTA chest. The patient has remained afebrile and he has had no pulmonary symptoms, it is unclear whether these infiltrates could be a an atypical pneumonia and he will complete an outpatient course of azithromycin. His COVID-19 testing was negative (4) Hypothyroid: Elevated, TSH, normal T4 -Continue Synthroid once again recommending outpatient PCP follow-up for better monitoring. Overall closer attention paid to his health with lifestyle modification including healthy diet daily exercise and avoidance of high glucose containing drinks Total Time Total Time Spent Total Time Spent (In Minutes): It required greater than 30 minutes to prepare this patient for discharge Discharge Plan Discharge Items Patient Disposition: Home - Self-Care Reason For Visit: SYNCOPE, HYPERGLYCEMIA, PNA Discharge Diagnosis: diabetes dehydration pneumonia Condition on Discharge: Good Activity: Resume your previous activity Non-emergency contact: Primary Care Provider and Specialist Call non-emergency contact if: you have any medication questions and your symptoms worsen Follow-up/Referrals: Dr. Dustin Azar [Other] (Please, follow up with Dr. Chan within 1 week of discharge from the hospital. Dr. Chan said that you do not need to schedule an appointment, you can just "walk-in." If you have any questions, call the office at [phone]. Take your blood glucose monitor with you to this appointment.) [facility] [Provider Group] (Please, follow up at [facility] for diabetes management. *The office is located in [address] of [facility], next to this hospital. A nurse will call you with the appointment details. If you have any questions, call the office at [phone].) Diet: Carb Consistent or DM2 Addtl Attending Provider Instructions: please limit your total daily calories to less than 2000 please get at least 30 minutes of exercise a day outside of work and chores, you may choose to do more if you like please eliminate sugary drinks from your diet, you may use diet or "zero" drinks make a follow up with Dr Chan for next week and be prepared to show you blood glucose readings Pending Studies at Discharge: Yes Stand-Alone Forms: My [facility], Smoking Cessation Medications and DC Order Prescriptions: New glyburide 5 mg tablet 5 mg PO DAILY Qty: 30 RF: 6 azithromycin 250 mg tablet 250 mg PO DAILY 4 Days Qty: 4 RF: 0 metformin 1,000 mg tablet 1,000 mg PO UD Qty: 90 RF: 0 Continued levothyroxine 137 mcg tablet 137 mcg PO DAILY RF: 0 ibuprofen 800 mg tablet 800 mg PO Q8 PRN (Reason: Pain) RF: 0 hydrocodone-acetaminophen 5-325 mg tablet 1 tab PO DAILY PRN (Reason: Pain) RF: 0 Discharge Orders: Discharge Order (Routine); Ordered 09/02/19 Ordered By: Pb Pierre/Other Patient Handouts: Diabetes Resources, Diabetes Type 2 Managing, Diabetes Meal Planning Admission Data Admit Date/Time: 09/02/19 03:10 Attending Provider: Pb Srinivasan Admit Provider: Feli Hoffman Primary Care Provider: PCP,NO Other Providers: Feli Hoffman Other Interventions: Discharge Summary Assessment (RN) Last Done: 09/02/19 13:27 DC Date/Time DO NOT enter until pt leaves facility: 09/02/19 16:13 Coding Level of Care Code D/C Day Management >30 mins Diagnoses Diabetes E11.65 Diabetes mellitus type: type 2 Diabetes mellitus termite control servicer insulin use: without termite control servicer use Diabetes mellitus complication status: with hyperglycemia Syncope R55 Syncope type: unspecified Pneumonia J18.9 Laterality: bilateral Lung location: lower lobe of lung Pneumonia type: due to unspecified organism Hypothyroid E89.0 Hypothyroidism type: postoperative
[2019-09-02] MEDS ORDERED: INSULIN GLARGINE SOLOSTAR 100 UNITS/ML 3 ML PEN SC SCH ×2 (21:00)
[2019-09-03] MEDS ORDERED: INSULIN ASPART 100 UNITS/ML 3 ML PEN SC SCH
[2019-09-03] MEDS ORDERED: cefTRIAXone SODIUM 2,000 MG in DEXTROSE 5% 50 ML IV SCH (04:00)
[2019-09-03] MEDS ORDERED: AZITHROMYCIN 250 MG in DEXTROSE 5% 250 ML IV SCH (06:00)
== END 2019-09-02 16:13 | disposition home or self-care (01) | DRG 637 ==
LOC: ED 23:39 → INTOOBSV 09-02 03:10 → SUATTDRO 09-02 03:10 → 2S 09-02 03:10